=== PATIENT | female | born 1960 | race Caucasian/White ===

== ENCOUNTER 2023-09-19 16:04 | Observation (INO) | payer OTHER ==
[2023-09-19 17:52] LABS: HEMATOCRIT 40.9 % (32.4-45.2); HEMOGLOBIN 14.1 G/dL (10.7-15.3); MCH 31.5 pg (25.7-33.7); MCHC 34.5 g/dl (32.0-36.0); MEAN CELL VOLUME 91.4 fl (80-96); MEAN PLT VOLUME 9.9 fl (7.5-11.1); PLATELET COUNT 225.2 10^3/uL (134-434); RBC 4.48 10^6/uL (3.60-5.2); RDW 14.1 % (11.6-15.6)
[2023-09-19 18:03] LABS: PLATELET ESTIMATE ADEQUATE
[2023-09-19 18:11] LABS: ALBUMIN 4.8 g/dl (3.4-5.0); BILIRUBIN,TOTAL 0.4 mg/dl (0.2-1); CALCIUM 9.8 mg/dl (8.5-10.1); CREATININE 0.8 mg/dl (0.6-1.3); TOT PROT 7.6 g/dl (6.4-8.2)
[2023-09-19] MEDS ORDERED: methylPREDNISolone NA SUCC 125 MG/2 ML VIAL ONE (18:55)
[2023-09-19] MEDS: methylPREDNISolone NA SUCC 125 MG/2 ML VIAL IVPUSH ONE (19:03)
[2023-09-19 19:07] LABS: URIC ACID 8.3 mg/dl (2.6-7.2)
[2023-09-19 21:04] VITALS: BMI 37.4
[2023-09-20] MEDS: amLODIPine BESYLATE 10 MG TABLET (FP) PO SCH (09:48)
[2023-09-20] MEDS: VALSARTAN 160 MG TABLET PO SCH (09:48)
[2023-09-20] MEDS: HYDROCHLOROTHIAZIDE 25 MG TABLET (FP) PO SCH (09:49)
[2023-09-20] MEDS ORDERED: PATIENT'S OWN MEDICATION (NON-FORMULARY) (Amlodipine/Valsartan/Hcthiazid [Amlod-Valsa-Hctz PO SCH (10:00)
[2023-09-20 10:23] LABS: BASO % 0.2 % (0-2.0); HEMATOCRIT 41.5 % (32.4-45.2); HEMOGLOBIN 14.2 GM/dL (10.7-15.3); LYMPH % 15.1 % (8-40); MCH 30.9 pg (25.7-33.7); MCHC 34.2 g/dl (32.0-36.0); MEAN CELL VOLUME 90.4 fl (80-96); MEAN PLT VOLUME 10.7 fl (7.5-11.1); MONO % 1.5 % (3.8-10.2); NEUT % 83.2 % (42.8-82.8); PLATELET COUNT 226 10^3/uL (134-434); WHITE BLOOD COUNT 8.4 K/mm3 (4.0-10.0)
[2023-09-20 11:21] LABS: CALCIUM 9.6 mg/dl (8.5-10.1); CREATININE 0.7 mg/dl (0.6-1.3); POTASSIUM 4.4 mmol/L (3.5-5.1)
[2023-09-20 14:53] VITALS: RESP 18
[2023-09-20] MEDS: ACETAMINOPHEN 325 MG TABLET (FP) PO PRN (17:49)
[2023-09-21 14:14] VITALS: BP 122/58; PULSE 66; TEMP 98.1
== END 2023-09-21 15:29 | disposition home or self-care (01) ==
LOC: FER 16:04 → UNDOADMIN 20:15 → FM/S 20:15 → INTOOBSV 21:17
PROC: 3E033GC Introduction of Other Therapeutic Substance into Peripheral Vein, Percutaneous Approach (ICD-10-PCS; principal; 2023-09-19)
DX: M79.651 Pain in right thigh (principal); M79.604 Pain in right leg; I10 Essential (primary) hypertension; R26.81 Unsteadiness on feet; E83.119 Hemochromatosis, unspecified; E66.01 Morbid (severe) obesity due to excess calories; Z68.37 Body mass index [BMI] 37.0-37.9, adult; M62.82 Rhabdomyolysis; M10.9 Gout, unspecified; E11.9 Type 2 diabetes mellitus without complications; Z88.8 Allergy status to other drugs, medicaments and biological substances
CPT/HCPCS: 36415; 73721-RT-TC; 80048; 80053; 82550; 82553; 84550; 85025; 85027; 93005; 96374; 97116-GP; 97162-GP; 99285-25; G0378